=== PATIENT | female | born 1955 | race Caucasian/White ===

== ENCOUNTER 2016-08-10 18:29 | Emergency (ER) | payer BC ==
[2016-08-10] MEDS ORDERED: Ondansetron 4 MG/2 ML SDV IVPUSH ONE (19:27)
[2016-08-10] MEDS ORDERED: Ketorolac 30 MG/ML SDV IVPUSH ONE (19:27)
[2016-08-10] MEDS ORDERED: Sodium Chloride 0.9% 10 ML Syringe FLUSH PRN (19:27)
[2016-08-10] MEDS ORDERED: Sodium Chloride 0.9% 1,000 ML IV SCH (19:30)
--- NOTE | 2016-08-10 19:30 | EDM.PDOC ---
ED HPI GI/ABDOMINAL - General Chief Complaint: Abdominal Pain Stated Complaint: back pain Time Seen by Provider: 08/10/16 19:03 Source of Information: Reports: Patient, RN, RN notes reviewed History Limitations: Reports: No limitations - History of Present Illness INITIAL COMMENTS - FREE TEXT/NARRATIVE: patient presents to the emergency room at [facility] complaining of left flank/abdominal pain. The patient states the pain began about an hour PRIOR to presentation. The patient complains of severe nausea. In the patient denies any diarrhea or vomiting. The patient denies any previous abdominal surgeries. The patient denies any injury or trauma to the abdomen. The patient complains of malodorous urine. The patient denies any UTI symptoms. The patient denies any blood in stools. The patient states her appetite has been good. The patient states she has been trying to stay well hydrated. Symptom Onset Date: 08/10/16 Timing/Duration: Reports: Getting worse Location: LLQ (and left flank) Quality: Reports: stabbing Severity: moderate Improves with: Reports: lying down Worsens with: Reports: palpation, sitting up Context: Denies: sick contact, bad/questionable food, out of country travel, recent surgery, recent trauma Associated Symptoms (-Female): Reports: nausea/vomiting - Related Data Home Meds: Home Meds Tamsulosin HCl [Flomax] 0.4 mg PO DAILY #7 cap.er.24h 08/10/16 [Rx] traMADol HCl [Tramadol HCl] 50 mg PO Q6H PRN #10 tablet 08/10/16 [Rx] ED ROS GENERAL - Review of Systems Review Of Systems: See Below Constitutional: Denies: fever, chills, weakness Respiratory: Denies: Shortness of Breath, Cough Cardiovascular: Denies: Chest pain, Palpitations GI/Abdominal: Reports: Abdominal pain, Nausea. Denies: Black stool, Bloody stool, Diarrhea, Vomiting : Reports: flank pain (Left) Skin: Reports: no symptoms Neurological: Denies: Dizziness, Headache, Numbness, Paresthesia, Tingling ED EXAM, GI/ABD - Physical Exam Exam: See Below Exam Limited By: No limitations General Appearance: alert, mild distress, obese Respiratory/Chest: no respiratory distress, lungs clear, normal breath sounds Cardiovascular: regular rate, rhythm GI/Abdominal: soft, hypoactive bowel sounds, tenderness (LLQ) Back Exam: CVA tenderness (L) Neurological: alert, oriented Skin Exam: Warm, Dry, Intact, Normal color, No rash Course - Vital Signs Last Recorded V/S: Last Vital Signs Temp 36.4 C 08/10/16 19:05 Pulse 82 08/10/16 19:05 Resp 16 08/10/16 19:05 BP 150/76 H 08/10/16 19:05 Pulse Ox - Orders/Labs/Meds Orders: Active Orders 24 hr Category Date Time Status Abdomen Pelvis wo Cont [CT] Stat Exams 08/10/16 19:24 Taken HYDROmorphone [Dilaudid] Med 08/10/16 20:59 Once 1 mg IVPUSH ONETIME ONE Sodium Chloride 0.9% [Normal Saline] 1,000 ml Med 08/10/16 19:30 Active IV ASDIRECTED Sodium Chloride 0.9% [Saline Flush] Med 08/10/16 19:27 Active 10 ml FLUSH ASDIRECTED PRN Peripheral IV Insertion Adult [OM.PC] Routine Oth 08/10/16 19:27 Ordered Medication Orders Sodium Chloride (Normal Saline) 1,000 mls @ 999 mls/hr IV ASDIRECTED TYLER Last Admin: 08/10/16 19:48 Dose: 999 mls/hr Sodium Chloride (Saline Flush) 10 ml FLUSH ASDIRECTED PRN PRN Reason: Keep Vein Open Labs: Laboratory Tests 08/10/16 08/10/16 08/10/16 Range/Units 19:24 19:24 19:24 WBC 9.6 (4.0-10.0) x10^3/uL RBC 4.24 (4.00-5.50) x10^6/uL Hgb 11.3 L (12.0-16.0) g/dL Hct 34.3 (33.0-47.0) % MCV 80.9 (78.0-93.0) fL MCH 26.7 (26.0-32.0) pg MCHC 32.9 (32.0-36.0) g/dL RDW Coeff of Murta[place] 13.8 (10.0-15.0) % Plt Count 176 (130-400) x10^3/uL Neut % (Auto) 79.7 (50.0-80.0) % Lymph % (Auto) 14.0 L (25.0-50.0) % [place] % (Auto) 5.5 (2.0-11.0) % Eos % (Auto) 0.8 (0.0-4.0) % Baso % (Auto) 0.0 L (0.2-1.2) % Sodium 140 (136-145) mmol/L Potassium 4.3 (3.5-5.1) mmol/L Chloride 105 (98-107) mmol/L Carbon Dioxide 26 (21-32) mmol/L BUN 17 (7-18) mg/dL Creatinine 1.0 (0.55-1.02) mg/dL Est Cr Clr Drug Dosing TNP Estimated GFR (MDRD) 57 Glucose 146 H (74-106) mg/dL Calcium 10.1 (8.5-10.1) mg/dL Urine Color [place]raine H (YELLOW) Urine Appearance Turbid H (CLEAR) Urine pH 5.5 (5.0-8.0) Ur Specific [place] 1.025 Urine Protein 100 H (NEGATIVE) mg/dL Urine Glucose (UA) Negative (NEGATIVE) mg/dL Urine Ketones Negative (NEGATIVE) mg/dL Urine Occult Blood Large H (NEGATIVE) Urine Nitrite Negative (NEGATIVE) Urine Bilirubin Negative (NEGATIVE) Urine Urobilinogen 0.2 (0.2) EU/dL Ur Leukocyte Esterase Negative (NEGATIVE) Urine RBC Packed (NOT SEEN) /HPF Urine Red Cell Clumps Present Urine WBC 0-5 (NOT SEEN) /HPF Ur Squamous Epith Cells Moderate H (NEGATIVE) /HPF Calcium Oxalate Crystal Occasional H (NEGATIVE) /HPF Amorphous Sediment Few Urine Bacteria Moderate H (NEGATIVE) /HPF Urine Mucus Few H (NEGATIVE) /LPF Meds: Medications Generic Name Dose Route Start Last Admin Trade Name Freq PRN Reason Stop Dose Admin Sodium Chloride 1,000 mls @ 999 mls/hr 08/10/16 19:30 08/10/16 19:48 Normal Saline IV 999 mls/hr ASDIRECTED TYLER Administration Sodium Chloride 10 ml 08/10/16 19:27 Saline Flush FLUSH ASDIRECTED PRN Keep Vein Open Discontinued Medications Generic Name Dose Route Start Last Admin Trade Name Freq PRN Reason Stop Dose Admin Ketorolac Tromethamine 30 mg 08/10/16 19:27 08/10/16 19:52 Toradol IVPUSH 08/10/16 19:28 30 mg ONETIME ONE Administration Ondansetron HCl 4 mg 08/10/16 19:27 08/10/16 19:50 Zofran IVPUSH 08/10/16 19:28 4 mg ONETIME ONE Administration - Radiology Interpretation Free Text/Narrative:: See scanned CT documents CT Results Date: 08/10/16 CT Results Time: 20:37 Departure - Departure Time of Disposition: 21:00 Disposition: Home, Self-Care 01 Condition: good Clinical Impression: Kidney stones, Hydronephrosis of left kidney Prescriptions: Tamsulosin HCl [Flomax] 0.4 mg PO DAILY #7 cap.er.24h traMADol HCl [Tramadol HCl] 50 mg PO Q6H PRN #10 tablet PRN Reason: Pain (Severe 7-10) Instructions: Kidney Stones, Hydronephrosis Referrals: Jennifer Morales DO [Primary Care Provider] - Forms: ED Department Discharge Additional Instructions: 1. Stay well hydrated and rest 2. Take mediations for the full coarse, even if you are feeling better 3. Take narcotic pain medication sparingly; make cause drowsiness 4. May take Tylenol 5. Referral made with Dr. Espino. [facility] will call to set up this appointment with you - Problem List Review Problem List Initiated/Reviewed/Updated: Yes - My Orders Last 24 Hours: My Active Orders 08/10/16 19:24 Abdomen Pelvis wo Cont [CT] Stat 08/10/16 19:27 Sodium Chloride 0.9% [Saline Flush] 10 ml FLUSH ASDIRECTED PRN Peripheral IV Insertion Adult [OM.PC] Routine 08/10/16 19:30 Sodium Chloride 0.9% [Normal Saline] 1,000 ml IV ASDIRECTED 08/10/16 20:59 HYDROmorphone [Dilaudid] 1 mg IVPUSH ONETIME ONE - Assessment/Plan Last 24 Hours: My Active Orders 08/10/16 19:24 Abdomen Pelvis wo Cont [CT] Stat 08/10/16 19:27 Sodium Chloride 0.9% [Saline Flush] 10 ml FLUSH ASDIRECTED PRN Peripheral IV Insertion Adult [OM.PC] Routine 08/10/16 19:30 Sodium Chloride 0.9% [Normal Saline] 1,000 ml IV ASDIRECTED 04/11/17 20:59 HYDROmorphone [Dilaudid] 1 mg IVPUSH ONETIME ONE
[2016-08-10 20:08] LABS: CHLORIDE,CL 105 mmol/L (98-107); SODIUM,NA 140 mmol/L (136-145)
[2016-08-10 20:59] VITALS: BP 150/76
[2016-08-10] MEDS ORDERED: HYDROmorphone 1 MG/ML Syringe IVPUSH ONE (20:59)
== END 2016-08-10 21:35 | disposition home or self-care (01) ==
LOC: VM.ED 18:29
DX: N13.2 Hydronephrosis with renal and ureteral calculous obstruction (principal); Z79.899 Other long term (current) drug therapy
CPT/HCPCS: 74176; 80048; 81001; 85025; 96361; 96374; 96375; 99284; J1170; J1885; J2405; J7030

== ENCOUNTER 2016-08-12 17:43 | Emergency (ER) | payer BC ==
[2016-08-12] MEDS ORDERED: HYDROmorphone 1 MG/ML Syringe IVPUSH ONE (17:56)
[2016-08-12] MEDS ORDERED: Take Home: Acetaminophen/HYDROcodone 325-10 MG, 5 Tab Pack PO ONE (17:57)
[2016-08-12] MEDS ORDERED: Ondansetron 4 MG Tab.DIS PO ONE (18:02)
[2016-08-12 18:06] VITALS: BP 121/65
[2016-08-12] MEDS ORDERED: HYDROmorphone 1 MG/ML Syringe IM ONE (18:20)
[2016-08-12] MEDS ORDERED: Take Home: Ondansetron 4 MG Tab.DIS, 2 Tab Pack PO ONE (19:04)
--- NOTE | 2016-08-13 07:53 | ER ---
Date of Service: 08/12/2016 SUBJECTIVE: Ayah presents to the emergency room with complaints of left flank pain. She was seen by Juventino Young approximately 2 nights ago for the same and was found to have a 4 mm left kidney stone causing moderate hydronephrosis. She was treated with IV Toradol and sent home on Flomax and tramadol. She states the discomfort has been significant and subsequently presents back to the ER with continued pain. The patient is scheduled to see Urology towards the end of the month. The kidney stone was nearing the UVJ 2 nights ago and states that she began experiencing increased pain throughout the day today. PAST MEDICAL HISTORY: None. MEDICATIONS: Flomax and tramadol. ALLERGIES: NKDA. REVIEW OF SYSTEMS: General: Denies any fever or chills. No hematuria. Discomfort feels somewhat to what she has experienced in the past. Genitourinary: Does have an established history of kidney stone with evidence of partially obstructing 4 mm kidney stone in the left kidney. PHYSICAL EXAMINATION: General: This is a 60-year-old female patient, in no acute distress. Vital Signs: Blood pressure is 121/65, pulse rate 77, temperature is 36.4, respiratory rate is 14, O2 saturations 98%. Skin: Warm, pink, and dry. HEENT: Head is normocephalic, atraumatic. Eyes, PERRLA. Extraocular movements are intact. Mouth, oral mucosa is moist. No erythema or exudate noted in hypopharynx. Neck: Supple. No masses. There is no lymphadenopathy. Lungs: Clear to auscultation. Abdomen: Soft, nontender to palpation. She has no CVA tenderness. EMERGENCY ROOM COURSE: The patient was given Dilaudid 1 mg IM. She did report significant improvement in her discomfort. She remained stable in my care here in the emergency room. ASSESSMENT: Left-sided kidney stone with hydronephrosis. PLAN: The patient will be discharged. I did start her on [place] 10/325 with instructions to take 1 every 4 to 6 hours as needed for pain. She is likely experiencing increased discomfort. It will be due to the fact that the stone is passing into the bladder, which is the narrowest portion of the genitourinary tract. I did start her on [place] 10/325 with instructions to take 1 to 2 every 4 to 6 hours as needed for pain. If she has pain that is unrelenting, she should return to the emergency room and we will have her evaluated emergently by Urology. All questions were answered. MWK: 08/12/2016 22:43:50 MODL: 08/13/2016 02:01:32 /[id number]
== END 2016-08-12 19:13 | disposition home or self-care (01) ==
LOC: VM.ED 17:43
DX: N13.2 Hydronephrosis with renal and ureteral calculous obstruction (principal)
CPT/HCPCS: 96372; 99283; A9270; J1170